=== PATIENT | male | born 1995 | race Caucasian/White ===

== ENCOUNTER 2020-07-06 08:47 | Emergency (ER) | payer OTHER, SELFPAY ==
--- NOTE | ~2020-07-06 | XR_ITS ---
EXAMINATION: XR chest 1V portable DATE: 07/06/2020 10:09 INDICATION: Shortness of breath. TECHNIQUE: A single frontal view of the chest was obtained. COMPARISON: None. FINDINGS: There are mild airspace opacities in left lower lung zone. No pleural effusion or pneumotho rax. The heart size is normal. IMPRESSION: 1. Mild airspace opacities in left lower lung zone, consistent with atelectasis versus pneumonia. Reviewed, dictated and finalized at location A. OMINIUM MANAGER
[2020-07-06 08:50] VITALS: BP 118/81; PULSE 91; RESP 19; TEMP 36.9; O2SAT 97
[2020-07-06] MEDS: IPRATROPIUM BR 0.02% INH SOLN 0.5 MG/2.5 ML VIAL INHALATION (09:17)
[2020-07-06] MEDS: IPRATROPIUM 0.5 MG/ALBUTEROL SULFATE 2.5 MG AMPUL.NEB 3 ML INHALATION (09:20)
[2020-07-06 09:23] VITALS: PULSE 50; RESP 22; O2SAT 99
--- NOTE | 2020-07-06 09:26 | ED.GENADULT ---
HPI - General Adult General Chief complaint: Upper Respiratory Infection Stated complaint: Sob Source: patient and family Mode of arrival: ambulatory Limitations: no limitations History of Present Illness HPI narrative: This is a 24 YO white male that presented to the Ed with complains of SOB Related Data Home Medications Medication Instructions Recorded Confirmed No Home Medications 07/06/20 07/06/20 Allergies Allergy/AdvReac Type Severity Reaction Status Date / Time No Known Allergies Allergy Verified 07/06/20 09:05 Course Vital Signs Vital signs: Vital Signs Temperature 98.4 F 07/06/20 08:50 Pulse Rate 91 07/06/20 08:50 Respiratory Rate 19 07/06/20 08:50 Blood Pressure 118/81 07/06/20 08:50 Pulse Oximetry 97 07/06/20 08:50 Temperature 98.4 F 07/06/20 08:50 Pulse Rate 50 L 07/06/20 09:23 Respiratory Rate 22 H 07/06/20 09:23 Blood Pressure 118/81 07/06/20 08:50 Pulse Oximetry 99 07/06/20 09:23 Medical Decision Making Vital Signs Vital Signs: Vital Signs Temperature 98.4 F 07/06/20 08:50 Pulse Rate 91 07/06/20 08:50 Respiratory Rate 19 07/06/20 08:50 Blood Pressure 118/81 07/06/20 08:50 Pulse Oximetry 97 07/06/20 08:50 Temperature 98.4 F 07/06/20 08:50 Pulse Rate 50 L 07/06/20 09:23 Respiratory Rate 22 H 07/06/20 09:23 Blood Pressure 118/81 07/06/20 08:50 Pulse Oximetry 99 07/06/20 09:23 Lab Data Result diagrams: 07/06/20 09:19 07/06/20 09:19 Labs: Lab Results 07/06/20 07/06/20 07/06/20 Range/Units 09:12 09:19 09:19 WBC Pending RBC Pending Hgb Pending Hct Pending MCV Pending MCH Pending MCHC Pending RDW Pending Plt Count Pending MPV Pending Sodium Potassium Chloride Carbon Dioxide Anion Gap BUN Creatinine Estim Creat Clear Calc Estimated GFR Glucose Calculated Osmolality Calcium Total Bilirubin AST ALT Alkaline Phosphatase B-Natriuretic Peptide Total Protein Albumin SARS-CoV-2 RNA (RT-PCR) Pending SARS-CoV-2 Ag (Rapid) Pending 07/06/20 07/06/20 Range/Units 09:19 09:19 WBC RBC Hgb Hct MCV MCH MCHC RDW Plt Count MPV Sodium Pending Potassium Pending Chloride Pending Carbon Dioxide Pending Anion Gap Pending BUN Pending Creatinine Pending Estim Creat Clear Calc Pending Estimated GFR Pending Glucose Pending Calculated Osmolality Pending Calcium Pending Total Bilirubin Pending AST Pending ALT Pending Alkaline Phosphatase Pending B-Natriuretic Peptide Pending Total Protein Pending Albumin Pending SARS-CoV-2 RNA (RT-PCR) SARS-CoV-2 Ag (Rapid) Discharge Plan Discharge Prescriptions: No Action No Home Medications RF: 0
[2020-07-06 09:27] LABS: Hematocrit 49.3 % (40.0-54.0); Hemoglobin 16.7 g/dL (14.0-18.0); Mean Corpuscular HGB Conc 33.9 g/dL (32.0-36.0); Mean Corpuscular Hemoglobin 30.6 pg (27.0-31.0); Mean Corpuscular Volume 90.3 fL (78.0-102.0); Mean Platelet Volume 9.7 fl (8.7-11.0); Platelet Count Result 336 K/mm3 (150-420); Red Blood Count 5.46 M/mm3 (4.70-6.10); Red Cell Distribution Width 12.9 % (11.6-14.4); White Blood Count 11.7 K/mm3 (4.8-10.8)
[2020-07-06 09:33] VITALS: PULSE 78; RESP 16; O2SAT 100
--- NOTE | 2020-07-06 09:33 | ECG_ITS ---
Measurements Intervals [place] Rate: 73 P: 68 DE: 169 QRS: 52 QRSD: 90 T: 67 QT: 368 QTc: 406 Interpretive Statements SINUS RHYTHM ST ELEVATION IN ANTEROLAT/INF LEADS- PROBABALY EARLY REPOLARIZATION BASELINE ARTIFACT- AVR, AVL BORDERLINE ECG Electronically Signed On 07-06-2020 10:11:24 RADIO DESPATCHER by Vick Conteh D.O.
--- NOTE | 2020-07-06 09:36 | ED.GENADULT ---
HPI - General Adult General Chief complaint: Upper Respiratory Infection <Yamilet Waters HITESH Lane - Last Filed: 07/06/20 10:44> Stated complaint: Sob <Yamilet LaneHITESH - Last Filed: 07/06/20 10:44> Source: patient and family <Yamilet LaneHITESH - Last Filed: 07/06/20 10:44> History of Present Illness HPI narrative: This is a 23-year-old male that presented to our ED with complaints of shortness of breath .Patient denies any past medical history. according to his Mother, she believes that they were exposed to COVID back in April she noted that many of her family members lost their sense of taste and smell but wee not tested. patient notes that for the last 3 days his shortness of breath has worsened ,he has also complains of increase postnasal drip, patient does have a productive cough with clear sputum and nasal congestion.he has not done anything at home to relieve his symptoms. He does not have any history of asthma or COPD. Patient denies cp, palpitation, diarrhea, constipation, lightheadness, headache, dizziness or chills and fevers. Disposition: Stable patient will discharge home with self-care This document was completed by using [employer] speech recognition software, therefore advertising consultant variances may occur. Despite proofreading, typographical errors may also occur. <Marshallsabas Waters HITESH Lane - Last Filed: 07/06/20 10:44> Related Data Allergies/adverse reactions: Allergies Allergy/AdvReac Type Severity Reaction Status Date / Time No Known Allergies Allergy Verified 07/06/20 09:05 <Yamilet RenettaHITESH [place] - Last Filed: 07/06/20 10:44> Review of Systems Constitutional: Constitutional: Reports as per HPI, Denies chills and Denies fatigue <HITESH Jose - Last Filed: 07/06/20 10:44> Eyes: Eyes: Reports as per HPI <HITESH Jose - Last Filed: 07/06/20 10:44> Cardiovascular: Cardiovascular: Reports as per HPI, Denies chest pain, Denies rapid heart rate, Denies edema, Denies palpitations, Reports dyspnea, Reports dyspnea on exertion and Reports orthopnea <Yamilet JacksonLluvia Domingo [facility] Last Filed: 07/06/20 10:44> Respiratory: Respiratory: Reports cough ( productive clear in color), Reports dyspnea, Reports dyspnea on exertion, Reports wheezing and Reports other ( postnasal dripping) <Yamilet JacksonLluvia Domingo [facility] - Last Filed: 07/06/20 10:44> Gastrointestinal: Gastrointestinal: Reports as per HPI, Denies coffee ground emesis, Denies constipation, Denies heartburn, Denies diarrhea, Denies nausea, Denies vomiting and Denies hematemesis <Yamilet JacksonLluvia Lane [facility] - Last Filed: 07/06/20 10:44> Genitourinary: Genitourinary: Reports no additional male genitourinary complaints <Marshallsabas RenettaLluvia Lane [facility] - Last Filed: 07/06/20 10:44> Musculoskeletal: Musculoskeletal: Reports no additional musculoskeletal complaints <Yamilet Lane [facility] Last Filed: 07/06/20 10:44> Integumentary/Breasts: Skin/Breast: Reports system reviewed and no additional complaints, except as docu <Yamilet JacksonLluvia Lane [facility] Last Filed: 07/06/20 10:44> Neurologic: Reports system reviewed and no additional complaints, except as documented <Yamilet JacksonLluvia Lane [facility] Last Filed: 07/06/20 10:44> Psychiatric: Psychiatric: Reports no additional psychiatric complaints <Marshallsabas Lane [facility] Last Filed: 07/06/20 10:44> Endocrine: Endocrine: Reports no additional endocrine complaints <Marshallsabas JacksonLluvia Lane [facility] - Last Filed: 07/06/20 10:44> Hematologic/Lymphatic: Hematologic/Lymphatic: Reports no additional hematologic/lymphatic complaints <Yamilet Lane [facility] Last Filed: 07/06/20 10:44> Exam Narrative: Exam Narrative: General: A well-developed, well-nourished male sitting up in bed no acute distress. HEENT: Normocephalic, atraumatic. PERRL, EOMI. Sclerae anicteric. Oral mucosa moist. Oropharynx clear. Neck: Supple. Respiratory: lower lobe wheezing Cardiov
[2020-07-06 09:44] LABS: Alanine Aminotransferase 68 U/L (16-63); Albumin Level 4.2 g/dL (3.4-5.0); Alkaline Phosphatase 115 U/L (46-116); Anion Gap 12 mmol/L (8-16); Aspartate Amino Transferase 39 U/L (15-37); Bilirubin,Total 0.4 mg/dL (0.00-1.00); Blood Urea Nitrogen 16 mg/dL (7-18); Calcium 8.9 mg/dL (8.5-10.1); Carbon Dioxide 26 mmol/L (21-32); Chloride 102 mmol/L (98-108); Estimated Glomerular Filt Rate > 60; Glucose 94 mg/dL (70-99); Osmolality Calculated 291 mOsm/kg (285-295); Sodium 140 mmol/L (136-145); Total Protein 8.2 g/dL (6.4-8.2)
[2020-07-06 09:47] LABS: SARS-CoV-2 Ag Negative (Negative)
[2020-07-06 09:48] LABS: BNP < 5.0 pg/mL (0-100)
[2020-07-06 10:20] LABS: Troponin I < 4.0 ng/L (0.00-60.4)
[2020-07-06 10:45] VITALS: BP 116/78; PULSE 83; O2SAT 95
[2020-07-06 23:53] LABS: SARS-CoV-2 RNA PCR Negative
== END 2020-07-06 10:50 | disposition home or self-care (01) ==
PROVIDERS: Nurse Practitioner; Emergency Provider Emergency Medicine; PCP Internal Medicine
DX: J15.9 Unspecified bacterial pneumonia (principal); Z20.828 Contact with and (suspected) exposure to other viral communicable diseases
CPT/HCPCS: 36415; 71045; 80053; 83880; 84484; 85027; 87426; 93005; 94640; 99283; 99284; C9803; U0003; U0005

== ENCOUNTER 2023-03-16 12:22 | Emergency (ER) | payer BC, SELFPAY ==
--- NOTE | ~2023-03-16 | CT_ITS ---
EXAMINATION: CT BRAIN W/O DATE: 03/16/2023 14:38 INDICATION: Head trauma. TECHNIQUE: Computed tomography (CT) of the head was performed without intravenous contrast. The dose- length product was 605.33 mGy-cm. Automated exposure control and iterative reconstruction technique w ere employed. COMPARISON: No prior studies for comparison. FINDINGS: Normal brain parenchymal volume for age. Normal helm-white differentiation. No acute intrac ranial hemorrhage, infarction, mass or mass effect. No ventriculomegaly or midline shift. Midline sagittal images demonstrate a normal corpus callosum, c raniovertebral junction and sella turcica. Basilar cisterns are patent. Paranasal sinuses and mastoids are pneumatized. No depressed skull fractures. IMPRESSION: 1. No acute intracranial abnormality. Reviewed, dictated and finalized at location B.
[2023-03-16 12:31] VITALS: BP 139/80; PULSE 81; RESP 18; TEMP 36.3; O2SAT 100
--- NOTE | 2023-03-16 14:16 | ED.HEATRA ---
HPI - Head Injury General Chief complaint: Head Injury Stated complaint: hit in head with metal pole Time Seen by Provider: 03/16/23 13:33 History of Present Illness HPI Narrative: Patient is a 27-year-old male presenting after head trauma. Patient was struck in the head with a heavy metal pole while at work. States that he did not lose consciousness but he felt lightheaded and queasy. He was able to sit himself down in the queasiness continued. He felt like he had a dent on the side of his head so he came in for evaluation. No numbness or weakness, vision or speech changes. No neck or back pain. Currently states that the pain is very mild. No further complaints. Related Data Allergies Allergy/AdvReac Type Severity Reaction Status Date / Time No Known Allergies Allergy Verified 03/16/23 12:22 Review of Systems Review of Systems: All systems reviewed & are unremarkable except as noted in HPI and below Exam Narrative: GENERAL: Well-appearing, in no acute distress, pleasant and cooperative HEAD: hematoma right alevism; superficial abrasion right cheek EYES: PERRLA and EOMI. ENT: Nares clear, no rhinorrhea or epistaxis. Mucous membranes moist. NECK: Supple. CHEST: No respiratory distress. HEART: Regular rate and rhythm. ABDOMEN: nondistended EXTREMITIES: Normal range of motion. SKIN: Warm, dry, no rash. NEURO: No focal deficits. Alert and oriented x3. PSYCH: Normal mood and affect. Course Vital Signs Vital signs: Vital Signs Temperature 97.3 F L 03/16/23 12:31 Pulse Rate 81 03/16/23 12:31 Respiratory Rate 18 03/16/23 12:31 Blood Pressure 139/80 03/16/23 12:31 Pulse Oximetry 100 03/16/23 12:31 Oxygen Delivery Room Air 03/16/23 12:31 Temperature 97.3 F L 03/16/23 12:31 Pulse Rate 81 03/16/23 12:31 Respiratory Rate 18 03/16/23 12:31 Blood Pressure 139/80 03/16/23 12:31 Pulse Oximetry 100 03/16/23 12:31 Oxygen Delivery Room Air 03/16/23 12:31 MDM - Head Injury MDM Narrative Medical decision making narrative: 27-year-old male presenting after head trauma. Vital stable. Neurologically intact. Exam remarkable for the above. CT brain without acute abnormalities. Discussed appropriate supportive care and concussion precautions. Advised PCP follow-up. Patient voiced understanding is agreeable with plan. Discharged in stable condition Differential Diagnosis Differential diagnosis: Likely concussion without loss of consciousness, closed head injury and postconcussion syndrome Medical Records Attestation: I reviewed the patient's medical records. Imaging Data Radiologist's impression: ITS Impressions Head CT 03/16/23 14:47 IMPRESSION: 1. No acute intracranial abnormality. Critical Care Time Critical Care Time Critical Care Time: No Discharge Plan Discharge Clinical Impression: Closed head injury Patient Disposition: Home, Self-Care Condition: Stable Instructions: Antibiotic Form, Concussion (ED) Additional Instructions: CT today shows no acute intracranial abnormalities. We recommend following up with your PCP within 1-3 days. If your symptoms worsen, you develop chest pain, shortness of breath, numbness or weakness, vomiting, fevers >100.4F, or other concerning symptoms arise, please return to the ER. Prescriptions: No Action albuterol sulfate 90 mcg/actuation HFA aerosol inhaler 1 inh inhalation QID PRN (Reason: shortness of breath or wheezing) Qty: 6.7 0RF guaifenesin 200 mg tablet 200 mg PO QID Qty: 30 0RF benzonatate [Tessalon Perles] 100 mg capsule 100 mg PO BID PRN (Reason: cough) Qty: 30 0RF doxycycline hyclate 100 mg capsule 100 mg PO BID 10 Days Qty: 20 0RF Follow-up/Referrals: PHYSICIAN NOT ON STAFF,NONSTAFF [Primary Care Provider] -
== END 2023-03-16 15:19 | disposition home or self-care (01) ==
PROVIDERS: Emergency Provider Emergency Medicine
DX: S00.83XA Contusion of other part of head, initial encounter (principal); S00.81XA Abrasion of other part of head, initial encounter; W22.8XXA Striking against or struck by other objects, initial encounter
CPT/HCPCS: 70450; 99284